=== PATIENT | female | born 1970 | race Caucasian/White ===

== ENCOUNTER 2017-09-25 20:52 | Emergency (ER) | payer BC ==
[~2017-09-25] VITALS: Ht 172.7 cm; Wt 126.8 kg
[~2017-09-25 20:52] MED LIST: HYDR-3964; LORA-269 PO; METH-360 PO; NORG1TAB80; OMEP-50; SUCR1TAB; SULF1TAB49 PO
[2017-09-25] MEDS ORDERED: ondansetron/PF 4mg/2ml inj IV ONE (21:35)
[2017-09-25] MEDS ORDERED: normal saline 1000ML IV soln IVB ONE (21:35)
[2017-09-25 21:38] VITALS: BP 134/90
[2017-09-25 22:29] LABS: ALANINE AMINOTRANSFERASE 103 U/L (12-78); ALBUMIN 4.2 G/DL (3.4-5.0); ALKALINE PHOSPHATASE 61 IU/L (46-116); ANION GAP 10 (8-16); ASPARTATE AMINO TRANSFERASE 58 U/L (10-37); BILIRUBIN,TOTAL 0.7 MG/DL (0.1-1.0); BLOOD UREA NITROGEN 16 MG/DL (7-18); BUN/CREATININE RATIO 16.8 (6.6-38.0); CALCIUM 9.2 MG/DL (8.5-10.1); CHLORIDE 99 MMOL/L (99-107); CREATININE 0.95 MG/DL (0.40-0.90); GLUCOSE 156 MG/DL (70-104); POTASSIUM 3.3 MMOL/L (3.5-5.1); SODIUM 140 MMOL/L (135-145); TOTAL CARBON DIOXIDE 30.9 MMOL/L (24-32); TOTAL PROTEIN 8.6 G/DL (6.4-8.2); eGFR 64 ML/MIN
[2017-09-25 22:30] LABS: BASOPHILS % (AUTO) 0.5 % (0-1); EOSINOPHILS # (AUTO) 0.2 X10'3 (0-0.9); EOSINOPHILS % (AUTO) 2.5 % (0-6); HEMATOCRIT 40.3 % (35.0-45.0); HEMOGLOBIN 13.9 g/dl (12.0-16.0); LYMPHOCYTES # (AUTO) 2.7 X10'3 (1.1-4.8); LYMPHOCYTES % (AUTO) 34.5 % (21-51); MEAN CORPUSCULAR HEMOGLOBIN 28.5 PG (27.0-31.0); MEAN CORPUSCULAR HGB CONC 34.4 % (33.0-36.5); MEAN PLATELET VOLUME 8.7 FL (7.4-10.4); MONOCYTES # (AUTO) 0.7 X10'3 (0-0.9); MONOCYTES % (AUTO) 9.4 % (2-12); NEUTROPHILS # (AUTO) 4.1 X10'3 (1.8-7.7); NEUTROPHILS % (AUTO) 53.1 % (42-75); PLATELET COUNT 271 X10'3 (140-440); RED BLOOD COUNT 4.86 X10'6 (4.20-5.60); RED CELL DISTRIBUTION WIDTH 12.3 % (11.5-14.5); WHITE BLOOD COUNT 7.7 X10'3 (4.5-11.0)
[2017-09-25] MEDS ORDERED: potassium Cl 20 mEq SR tablet PO STA (22:51)
[2017-09-25 23:04] LABS: CLARITY,URINE CLEAR (Clear); COLOR,URINE YELLOW (Yellow); GLUCOSE, URINE NEGATIVE (Neg); KETONES,URINE NEGATIVE (Neg); LEUKOCYTE ESTERASE ,URINE NEGATIVE (Neg); NITRITES, URINE NEGATIVE (Neg); OCCULT BLOOD,URINE NEGATIVE (Neg); PH,URINE 5.5 (4.8-8.0); PROTEIN,URINE TRACE mg/dl (Neg); UROBILINOGEN,URINE 0.2 E.U/dL (0.2-1.0)
[2017-09-25] MEDS ORDERED: ONDA4TAB9 SL (23:07)
[2017-09-25 23:08] LABS: UA COLLECTION TYPE CLN CATCH MIDSTREAM
[2017-09-25 23:30] LABS: AMORPHOUS URATES 1+; BACTERIA,URINE FEW /HPF (Neg); MUCUS STRANDS MANY /LPF (Neg); RBC,URINE NONE SEEN /HPF (0-2); SQUAMOUS EPITHELIAL CELL,UR MANY /LPF (FEW); WBC,URINE 0-4 /HPF (0-4)
== END 2017-09-25 23:20 | disposition home or self-care (01) ==
LOC: ER 20:53
DX: E87.6 Hypokalemia (principal); R19.7 Diarrhea, unspecified; N89.8 Other specified noninflammatory disorders of vagina; E11.65 Type 2 diabetes mellitus with hyperglycemia; G89.29 Other chronic pain; Z90.49 Acquired absence of other specified parts of digestive tract; Z98.890 Other specified postprocedural states; Z88.5 Allergy status to narcotic agent; Z79.899 Other long term (current) drug therapy
CPT/HCPCS: 36415; 80053; 81001; 82948; 85025; 96361; 96374; 99284; J2405; J7030

== ENCOUNTER 2018-01-15 19:03 | Emergency (ER) | payer BC ==
[~2018-01-15] VITALS: Ht 175.3 cm; Wt 107.1 kg
[2018-01-15 19:20] VITALS: BP 158/111
[2018-01-15] MEDS ORDERED: cyclobenzaprine 10mg tablet PO STA (21:14)
[2018-01-15] MEDS ORDERED: ketorolac trometh inj. 60 MG/2 ML VIAL IM STA (21:14)
[2018-01-15] MEDS ORDERED: CYCL-1 PO (21:19)
[2018-01-15] MEDS ORDERED: ondansetron 4mg rapidly disintigrating tab PO ONE (21:30)
== END 2018-01-15 21:42 | disposition home or self-care (01) ==
LOC: ER 19:03
DX: G89.29 Other chronic pain (principal); M54.5 Low back pain; M62.830 Muscle spasm of back; E11.9 Type 2 diabetes mellitus without complications; Z87.442 Personal history of urinary calculi; Z90.49 Acquired absence of other specified parts of digestive tract; Z98.890 Other specified postprocedural states; Z88.5 Allergy status to narcotic agent
CPT/HCPCS: 96372; 99283; J1885

== ENCOUNTER 2018-04-08 12:20 | Emergency (ER) | payer BC ==
[~2018-04-08 12:20] MED LIST changes: +CYCL-1 PO
== END 2018-04-08 14:21 | disposition left against medical advice (07) ==
LOC: ER 12:21
DX: R05 Cough (principal); Z53.21 Procedure and treatment not carried out due to patient leaving prior to being seen by health care provider